=== PATIENT | female | born 1995 | race Caucasian/White ===

== ENCOUNTER 2019-01-12 11:50 | Emergency (ER) | payer OTHER, SELFPAY ==
[2019-01-12] MEDS ORDERED: ACETAMINOPHEN 325 MG TABLET ONE (13:37)
--- NOTE | 2019-01-12 14:53 | RAD REPORT ---
EXAM DESCRIPTION: RAD - Foot Left 3 View - 01/12/2019 2:40 pm CLINICAL HISTORY: great toe injury Pain and swelling after trauma COMPARISON: No comparisons FINDINGS: Soft tissue swelling is seen along the dorsal forefoot. Great toe soft tissue swelling als o seen. There is no evidence of acute fracture.
--- NOTE | 2019-01-12 15:11 | EDPHYS ---
Physician Documentation [facility] Name: Jocelyn Landaverde Age: 23 yrs Sex: Female : 1995 Arrival Date: 01/12/2019 Time: 11:54 Bed 10 Private MD: None, None ED Physician Angel Hutchison HPI: 01/12 13:25 This 23 yrs old Female presents to ER via Ambulatory with complaints of Foot cp Injury, . 13:25 The patient presents with a contusion, an injury, pain, that is acute, tenderness. The cp complaints affect the left great toe. 13:25 Context: The problem was sustained at work, resulted from struck by office door, the cp patient can fully bear weight, the patient is able to ambulate, with mild difficulty. 13:25 Onset: The symptoms/episode began/occurred 10 day(s) ago. Associated signs and cp symptoms: Pertinent positives: swelling, Pertinent negatives calf tenderness, numbness, tingling. Treatment prior to arrival includes: no previous treatment. 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 - Social history:: Smoking status: Patient/guardian denies using tobacco. - Ebola Screening: : Patient negative for fever greater than or equal to 101.5 degrees Fahrenheit, and additional compatible Ebola Virus Disease symptoms Patient denies exposure to infectious person Patient denies travel to an Ebola-affected area in the 21 days before illness onset No symptoms or risks identified at this time. ROS: 13:30 Constitutional: Negative for body aches, chills, fever. cp 13:30 Eyes: Negative for injury, pain, redness, and discharge. cp 13:30 Neck: Negative for pain with movement, pain at rest. 13:30 Cardiovascular: Negative for chest pain, palpitations. 13:30 Respiratory: Negative for cough, shortness of breath, wheezing. 13:30 Abdomen/GI: Negative for abdominal pain, nausea, vomiting, and diarrhea. 13:30 Back: Negative for pain at rest, pain with movement. 13:30 MS/extremity: Positive for contusion, decreased range of motion, pain, swelling, tenderness, of the left great toe, Negative for deformity, paresthesias. 13:30 Neuro: Negative for headache, numbness, weakness. 13:30 All other systems are negative. Exam: 13:40 Constitutional: The patient appears in no acute distress, alert, awake, non-toxic, well cp developed, well nourished. 13:40 Head/Face: Normocephalic, atraumatic. cp 13:40 Eyes: Periorbital structures: appear normal, Conjunctiva: normal, no exudate, no injection, Lids and lashes: appear normal, bilaterally. 13:40 ENT: External ear(s): no acute changes, Nose: is normal, Mouth: Lips: moist, Oral mucosa: moist, Posterior pharynx: is normal, airway is patent. 13:40 Chest/axilla: Inspection: normal. 13:40 Cardiovascular: Rate: normal. 13:40 Respiratory: the patient does not display signs of respiratory distress, Respirations: normal. 13:40 Abdomen/GI: Inspection: gravid appearance, is noted. 13:40 Musculoskeletal/extremity: Extremities: grossly normal except: noted in the left great toe: contusion, pain, swelling, tenderness, There is no evidence of decreased ROM, deformity, ROM: limited passive range of motion due to pain, in the left great toe, Perfusion: the extremity is normally perfused throughout, Sensation intact. 13:40 Skin: cellulitis, is not appreciated, no rash present. Vital Signs: 12:11 BP 137 / 78; Pulse 80; Resp 17; Temp 98.2; Pulse Ox 99% on R/A; Weight 110.68 kg; sg Height 5 ft. 7 in. (170.18 cm); Pain 8/10; 12:11 Body Mass Index 38.22 (110.68 kg, 170.18 cm) sg MDM: 13:19 Patient medically screened. cp 13:30 Differential diagnosis: dislocation, closed fracture, contusion. cp 15:09 Data reviewed: vital signs, nurses notes, radiologic studies, plain films, and as a cp result, I will discharge patient. 15:09 Test interpretation: by ED physician or midlevel provider: plain radiologic studies. cp Counseling: I had a detailed discussion with the patient and/or guardian regarding: the historical points, exam findings, and any diagnostic results supporting the discharge/admit diagnosis, radiology results, to return to the emergency department if symptoms worsen or persist or if there are any questions or concerns that arise at home. Response to treatment: the patient's symptoms have markedly improved after treatment, and as a result, I will. 01/12 13:22 Order name: XRAY Foot LEFT 3 View; Complete Time: 14:56 cp 01/12 14:57 Order name: Post-op shoe; Complete Time: 15:21 cp Administered Medications: 13:29 Drug: Tylenol 650 mg Route: PO; aa5 15:21 Follow up: Response: No adverse reaction dm5 Disposition: 01/13 14:17 Co-signature as Attending Physician, Angel Hutchison MD I agree with the assessment and jaquelin plan of care. Disposition: 01/12/19 15:10 Discharged to Home. Impression: Contusion of left great toe with damage to nail - Subungual hematoma. - Condition is Stable. - Discharge Instructions: Subungual Hematoma, Crush Injury of the Foot. - Work release form, Medication Reconciliation Form, Thank You Letter, Antibiotic Education, Prescription Opioid Use form. - Follow up: Private Physician; When: 1 - 2 days; Reason: Worsening of condition. - Problem is new. - Symptoms have improved. Signatures: Dispatcher [employer] EDAlvino Pearce, RN Angel Love MD MD cha Calderon, Audri RN RN aa5 Angel Davalos PA PA cp Markwardt, Deana RN dm5 Corrections: (The following items were deleted from the chart) 01/12 15:26 15:10 01/12/2019 15:10 Discharged to Home. Impression: Contusion of left great toe with aa5 damage to nail - Subungual hematoma. Condition is Stable. Forms are Medication Reconciliation Form, Thank You Letter, Antibiotic Education, Prescription Opioid Use. Follow up: Private Physician; When: 1 - 2 days; Reason: Worsening of condition. Problem is new. Symptoms have improved. cp
--- NOTE | 2019-01-12 15:11 | ER ---
Nurse's Notes [facility] Name: Jocelyn Landaverde Age: 23 yrs Sex: Female : 1995 Arrival Date: 01/12/2019 Time: 11:54 Bed 10 Private MD: None, None Diagnosis: Contusion of left great toe with damage to nail-Subungual hematoma Presentation: 01/12 12:14 Presenting complaint: Patient states: 10 days ago my big toe was slammed by an office sg door, now the toe is still red and swollen, the toe nail looks grace in color and purple as well, reports increased pain while wearing shoes and ambulating. Transition of care: patient was not received from another setting of care. Onset of symptoms was January 12, 2019. Risk Assessment: Do you want to hurt yourself or someone else? Patient reports no desire to harm self or others. Initial Sepsis Screen: Does the patient meet any 2 criteria? No. Patient's initial sepsis screen is negative. Does the patient have a suspected source of infection? No. Patient's initial sepsis screen is negative. Care prior to arrival: None. 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 - Social history:: Smoking status: Patient/guardian denies using tobacco. - Ebola Screening: : Patient negative for fever greater than or equal to 101.5 degrees Fahrenheit, and additional compatible Ebola Virus Disease symptoms Patient denies exposure to infectious person Patient denies travel to an Ebola-affected area in the 21 days before illness onset No symptoms or risks identified at this time. Screenin:25 Abuse screen: Denies threats or abuse. Nutritional screening: No deficits noted. aa5 Tuberculosis screening: No symptoms or risk factors identified. Fall Risk None identified. Assessment: 13:25 General: Appears comfortable, Behavior is calm, cooperative. Pain: Complains of pain in aa5 left great toe Pain currently is 8 out of 10 on a pain scale. Quality of pain is described as aching, throbbing, Pain began approximately 10 days ago Aggravated by weight bearing. Neuro: Level of Consciousness is awake, alert, obeys commands, Oriented to person, place, time, situation. Cardiovascular: No deficits noted. Respiratory: Airway is patent Respiratory effort is even, unlabored, Respiratory pattern is regular, symmetrical. GI: No signs and/or symptoms were reported involving the gastrointestinal system. : No signs and/or symptoms were reported regarding the genitourinary system. EENT: No signs and/or symptoms were reported regarding the EENT system. Derm: Skin is pink, warm \\T\\ dry. left great toenail appears grayish/bluish in color. No redness or swelling noted to left great toe. Musculoskeletal: Range of motion: intact in all extremities. 15:10 Reassessment: Patient is alert, oriented x 3, equal unlabored respirations, skin aa5 warm/dry/pink. ortho shoe applied to left foot . Vital Signs: 12:11 BP 137 / 78; Pulse 80; Resp 17; Temp 98.2; Pulse Ox 99% on R/A; Weight 110.68 kg; sg Height 5 ft. 7 in. (170.18 cm); Pain 8/10; 12:11 Body Mass Index 38.22 (110.68 kg, 170.18 cm) sg ED Course: 11:54 Patient arrived in ED. dl4 11:55 None, None is Private Physician. dl4 12:09 Arm band placed on. sg 12:15 Triage completed. sg 13:11 Angel Davalos PA is PHCP. cp 13:11 Angel Hutchison MD is Attending Physician. cp 13:22 Kyara Koo, SUSAN is Primary Nurse. aa5 13:25 Patient has correct armband on for positive identification. Bed in low position. Call aa5 light in reach. Adult w/ patient. 14:40 XRAY Foot LEFT 3 View In Process Unspecified. EDMS 15:00 No provider procedures requiring assistance completed. Patient did not have IV access aa5 during this emergency room visit. Administered Medications: 13:29 Drug: Tylenol 650 mg Route: PO; aa5 15:21 Follow up: Response: No adverse reaction dm5 Outcome: 15:10 Discharge ordered by . cp 15:20 Discharged to home ambulatory, with family. aa5 15:20 Condition: good 15:20 Discharge instructions given to patient, Instructed on discharge instructions, follow up and referral plans. Demonstrated understanding of instructions, follow-up care. 15:26 Patient left the ED. aa5 Signatures: Dispatcher [employer] Eliza Gonzales RN RN dm5 Alvino Real RN RN sg Calderon, Audri, RN RN aa5 Angel Davalos PA PA cp Luna, David dl4
== END 2019-01-12 15:26 | disposition home or self-care (01) ==
LOC: ER 11:50
DX: S90.212A Contusion of left great toe with damage to nail, initial encounter (principal); W20.8XXA Other cause of strike by thrown, projected or falling object, initial encounter; Y93.9 Activity, unspecified; Y92.89 Other specified places as the place of occurrence of the external cause; Y99.0 Civilian activity done for income or pay
CPT/HCPCS: 99283